=== PATIENT | male | born 1995 | race African-American/Black ===

== ENCOUNTER 2017-07-04 11:34 | Emergency (ER) | payer MEDICARE, OTHER | END 2017-07-04 12:35 | disposition home or self-care (01) | LOC: ER 11:34 | DX: T25.231D Burn of second degree of right toe(s) (nail), subsequent encounter (principal); Z86.73 Personal history of transient ischemic attack (TIA), and cerebral infarction without residual deficits; M32.9 Systemic lupus erythematosus, unspecified; F12.10 Cannabis abuse, uncomplicated; Z88.6 Allergy status to analgesic agent; X08.8XXD Exposure to other specified smoke, fire and flames, subsequent encounter | CPT/HCPCS: 99284 ==

== ENCOUNTER 2017-07-26 18:59 | Inpatient (IN) | payer OTHER, MEDICARE ==
[2017-07-26 21:13] LABS: BILIRUBIN,URINE NEGATIVE (NEG); CLARITY,URINE CLEAR; COLOR,URINE YELLOW; GLUCOSE,URINE NEGATIVE (NEG); NITRITE,URINE NEGATIVE (NEG); PH,URINE 6.5; PROTEIN,URINE 100 mg/dL (NEG-TRACE); UROBILINOGEN,URINE 0.2 mg/dL (0.2 mg/dL)
[2017-07-26 21:28] LABS: BACTERIA,URINE 0 /HPF (0-FEW); RBC,URINE OCC /HPF (0-2); SQUAMOUS EPITHELIAL CELL,UR FEW /LPF
[2017-07-26 21:50] LABS: BASO % 0 % (0-3); EOS % 0 % (0-3); HEMOGLOBIN 10.8 g/dL (13.0-17.5); LYMPH # 0.5 x10^3/uL (1.0-4.8); LYMPH % 5 % (24-48); MEAN CORPUSCULAR HEMOGLOBIN 29 pg (25-35); MEAN CORPUSCULAR HGB CONC 34 g/dL (31-37); MEAN CORPUSCULAR VOLUME 86 fL (79-100); MONO # 0.2 x10^3/uL (0.0-1.1); MONO % 2 % (0-9); NEUT # 9.3 x10^3uL (1.8-7.7); NEUT % 93 % (31-73); PLATELET COUNT 225 x10^3/uL (140-400); RED BLOOD COUNT 3.73 x10^6/uL (4.30-5.70); RED CELL DISTRIBUTION WIDTH 18.1 % (11.5-14.5); WHITE BLOOD COUNT 10.1 x10^3/uL (4.0-11.0)
[2017-07-26 21:51] LABS: ADD MAN DIFF? YES
[2017-07-26 22:05] LABS: ANION GAP 6 (6-14); BLOOD UREA NITROGEN 18 mg/dL (8-26); BUN/CREATININE RATIO 26 (6-20); CALCIUM 8.9 mg/dL (8.5-10.1); CARBON DIOXIDE 28 mmol/L (21-32); CHLORIDE 102 mmol/L (98-107); CREATININE 0.7 mg/dL (0.7-1.3); GFR 170.6; GLUCOSE 79 mg/dL (70-99); SODIUM 136 mmol/L (136-145)
[2017-07-26 22:12] LABS: % BANDS 18 % (0-9); % LYMPHS 7 % (24-48); % MONOS 1 % (0-10); % MYELOS 2 % (0-0); % SEGS 72 % (35-66); ANISOCYTOSIS SLIGHT; PLT ESTIMATE ADEQUATE (ADEQUATE); POIKILOCYTOSIS SLIGHT
[2017-07-26 22:14] LABS: LACTIC ACID 1.1 mmol/L (0.4-2.0)
[2017-07-26 22:17] LABS: TROPONINI < 0.017 ng/mL (0.000-0.055)
[2017-07-26 22:24] LABS: ALBUMIN 2.6 g/dL (3.4-5.0); ALBUMIN/GLOBULIN RATIO 0.6 (1.0-1.7); ALK PHOS 62 U/L (46-116); ALT (SGPT) 15 U/L (16-63); AST (SGOT) 24 U/L (15-37); TOTAL BILIRUBIN 0.2 mg/dL (0.2-1.0); TOTAL PROTEIN 6.8 g/dL (6.4-8.2)
[2017-07-26] MEDS: fentaNYL PF VIAL 100 MCG/2 ML VIAL IV (22:33)
[2017-07-26] MEDS: ONDANSETRON PF 4 MG/2 ML VIAL. IV (22:33)
[2017-07-26] MEDS: IV NORMAL SALINE 1000ML BAG 1,000 ML IV (22:34)
[2017-07-26 22:36] LABS: CKMB MASS < 0.5 ng/mL (0.0-3.6); CREATINE KINASE 37 U/L (39-308)
[2017-07-26 22:36] LABS: NT-PRO BNP 605 pg/mL (0-124)
[2017-07-26 23:43] LABS: D-DIMER 7.68 ug/mlFEU (0.00-0.50)
[2017-07-26] MEDS ORDERED: ONDANSETRON PF 4 MG/2 ML VIAL. IV (23:45)
[2017-07-27] MEDS ORDERED: CONTRAST GIVEN MC (00:15)
[2017-07-27] MEDS: IOHEXOL 300 MG/ML 100ML VIAL. IV (00:34)
[2017-07-27] MEDS: HYDROcodone/APAP 7.5/325MG 1 TAB TABLET PO ×2 (01:02→10:26)
[2017-07-27] MEDS: IV NORMAL SALINE 1000ML BAG 1,000 ML IV (01:13)
[2017-07-27] MEDS: methylPREDNISolone SOD SUCC PF 40 MG/ML VIAL. IV ×4 (01:13→18:00)
[2017-07-27 03:51] LABS: ADD MAN DIFF? NO
[2017-07-27 03:55] LABS: BASO % 0 % (0-3); EOS % 0 % (0-3); HEMATOCRIT 31.7 % (39.0-53.0); HEMOGLOBIN 10.6 g/dL (13.0-17.5); LYMPH # 0.4 x10^3/uL (1.0-4.8); LYMPH % 4 % (24-48); MEAN CORPUSCULAR HEMOGLOBIN 28 pg (25-35); MEAN CORPUSCULAR HGB CONC 33 g/dL (31-37); MEAN CORPUSCULAR VOLUME 85 fL (79-100); MONO # 0.2 x10^3/uL (0.0-1.1); MONO % 2 % (0-9); NEUT # 9.8 x10^3uL (1.8-7.7); NEUT % 94 % (31-73); PLATELET COUNT 207 x10^3/uL (140-400); RED BLOOD COUNT 3.74 x10^6/uL (4.30-5.70); RED CELL DISTRIBUTION WIDTH 18.2 % (11.5-14.5); WHITE BLOOD COUNT 10.4 x10^3/uL (4.0-11.0)
[2017-07-27 04:04] LABS: BARBITURATES NEG (NEG); BENZODIAZEPINES NEG (NEG); CANNABINOIDS POS (NEG); COCAINE NEG (NEG); METHADONE NEG (NEG); OPIATES POS (NEG); PHENCYCLIDINE NEG (NEG)
[2017-07-27 04:06] LABS: AMPHETAMINE/METHAMPHETAMINE NEG (NEG); ETHANOL, URINE NEG (NEG)
[2017-07-27 04:17] LABS: ANION GAP 10 (6-14); BLOOD UREA NITROGEN 14 mg/dL (8-26); CALCIUM 7.9 mg/dL (8.5-10.1); CARBON DIOXIDE 25 mmol/L (21-32); CHLORIDE 102 mmol/L (98-107); CREATININE 0.7 mg/dL (0.7-1.3); GFR 170.6; GLUCOSE 85 mg/dL (70-99); POTASSIUM 3.8 mmol/L (3.5-5.1); SODIUM 137 mmol/L (136-145)
[2017-07-27] MEDS: oxyCODONE/APAP 7.5/325 1 TAB TABLET PO (04:36)
[2017-07-27] MEDS: LACTOBACILLUS RHAMNOSUS GG 1 CAPSULE. PO (08:19)
== END 2017-07-27 18:17 | disposition home or self-care (01) | DRG 545 ==
LOC: ER 18:59 → 2 NORTH 23:37
DX: M32.9 Systemic lupus erythematosus, unspecified (principal); J69.0 Pneumonitis due to inhalation of food and vomit; E43 Unspecified severe protein-calorie malnutrition; J44.0 Chronic obstructive pulmonary disease with (acute) lower respiratory infection; J44.1 Chronic obstructive pulmonary disease with (acute) exacerbation; D64.9 Anemia, unspecified; Z68.20 Body mass index [BMI] 20.0-20.9, adult; F17.200 Nicotine dependence, unspecified, uncomplicated; I10 Essential (primary) hypertension; Z83.3 Family history of diabetes mellitus; M19.90 Unspecified osteoarthritis, unspecified site; Z88.8 Allergy status to other drugs, medicaments and biological substances
CPT/HCPCS: 36415; 71045; 71275; 80048; 80053; 80307; 81001; 82553; 83605; 83880; 84484; 85007; 85025; 85379; 87040; 93005; 96361; 96374; 96375; 99285-25; J2405; J2920; J3010; J7030; Q9967